=== PATIENT | male | born 1985 | race Caucasian/White ===

== ENCOUNTER 2016-11-06 20:08 | Emergency (ER) | payer OTHER ==
--- NOTE | 2016-11-06 21:26 | DIAGNOSTIC IMAGING REPORT ---
PROCEDURE: XR HIP 2VW W W/O AP PELVIS-LT INDICATION: Left hip pain. Prior acetabular fracture. TECHNIQUE: AP view of the pelvis and hips with lateral view of the left hip. COMPARISON: None. FINDINGS: LEFT HIP: Left hip is partially obscured by acetabular metal hardware. Osseous structures and joint spaces are normal. PELVIS: Status post open reduction internal fixation of left acetabular fracture (side plate and multiple screws). In addition, there is a solitary screw through the left iliac wing. There are osseous pelvis is otherwise normal. IMPRESSION: 1. Status post open reduction internal fixation of left acetabular and iliac wing fractures (metal hardware). 2. Otherwise negative pelvis and left hip.
--- NOTE | 2016-11-06 22:01 | ED CLINICAL REPORT ---
Clinical Report - Physicians/Mid Levels [facility] [address] [place] [address] 11/06/2016 20:08 Patient: JOSE FELICIANO Time Seen: 2014; initial patient contact, initial documentation, patient care assumed. Arrived- By private vehicle. Historian- patient. HISTORY OF PRESENT ILLNESS Chief Complaint: LOWER EXTREMITY PAIN. Severity is described as being severe. The quality is noted to be "pain". It is described as radiating to the left buttocks and left groin. This started today and is still present. It was abrupt in onset and has been constant. Symptoms located in the area of the left hip. The patient has not had redness. No swelling, bladder dysfunction, bowel dysfunction, sensory loss or motor loss. He has had difficulty walking. It has been associated with pain in the left leg. He has not had difficult ambulation associated with numbness or weakness. No history of incontinence, dizziness, recent trauma or coordination problems. The patient has not had a shuffling gait. Patient denies an injury. Similar symptoms previously: Chronically, milder. Recent medical care: Not recently seen/assessed. REVIEW OF SYSTEMS No chest pain, difficulty breathing, fever, neck pain or back pain. No abdominal pain or difficulty with urination. All systems otherwise negative, except as recorded above. PAST HISTORY See nurses notes. ( PROBLEMS: Gastritis. Contusion. Back Pain. Myofascial Strain. Hypertension. Chronic Pain. On pain contract with [facility]. --20:16 Elke Mahmood R.N. ADDITIONAL SURGERIES: Fx Pelvis, Left knee and Left Hip (2005). --20:16 Elke Mahmood, R.N.). SOCIAL HISTORY Heavy tobacco smoker. History of heavy drug use: marijuana. Recently used drugs today. No alcohol use. No recent travel. Is a local resident. FAMILY HISTORY Negative. ADDITIONAL NOTES The nursing notes have been reviewed with agreement regarding the chief complaint, HPI, ROS, PMH and patient medications and allergies. PHYSICAL EXAM Vital Signs: 11/06/2016 20:14 BP: 144/88. HR: 73. RR: 20. O2 saturation: 100%. Temp: 97.9 F. Pain level now: 02/11. Have been reviewed as normal and appear to be correct. Appearance: Alert. Oriented X3. No acute distress. Eyes: Pupils equal, round and reactive to light. Eyes normal inspection. Neck: Normal inspection. Neck supple. CVS: Normal heart rate and rhythm. Heart sounds normal. Respiratory: No respiratory distress. Breath sounds normal. Abdomen: Soft and nontender. No organomegaly. Back: Normal inspection. No tenderness. ROM normal. Skin: Skin intact. Skin warm and dry. Normal skin color. Normal skin turgor. Extremities: Left hip: moderate tenderness located in the lateral aspect of the hip. Neurovascular intact distally. No erythema, swelling, laceration, abrasion or ecchymosis. No puncture wound, foreign body or deformity. No limitation in ROM. The left leg is not shortened, externally rotated, internally rotated, flexed or adducted. The left leg is not abducted. Lower extremities exhibit normal ROM. No lower extremity edema. Extremities otherwise negative. Gait: Normal gait. Neuro: Oriented X 3. No motor deficit. No sensory deficit. LABS, X-RAYS, AND EKG X-Rays: Left hip negative. Lt Hip X-ray: (IMPRESSION: 1. Status post open reduction internal fixation of left acetabular and iliac wing fractures (metal hardware). 2. Otherwise negative pelvis and left hip. Electronically Final signed by:Wally Us MD 11/06/2016 9:21:59 PM). The X-rays were interpreted by the radiologist and contemporaneously by me. Interpretation time: 21:46. PROGRESS AND PROCEDURES Patient counseled in person regarding the patient's stable condition, test results and diagnosis. 21:46. Differential Diagnosis: I considered stress fracture, bone spur, aseptic necrosis, primary tumor of bone, degenerative joint disease, septic etiology, ligament tear, myositis, fasciitis, tendonitis and bursitis as a possible cause of lower extremity pain in this patient. This is a partial list of diagnoses considered. Above considerations are based on history, physical exam, reassessment and X-Ray data. Differential diagnosis was discussed with patient. Disposition: Discharged home in good and improved condition (22:00). Condition: good and stable. CLINICAL IMPRESSION Chronic left hip pain. INSTRUCTIONS Warnings: GENERAL WARNINGS: Return or contact your physician immediately if your condition worsens or changes unexpectedly, if not improving as expected, or if other problems arise. Specifically return if problem worsens. Prescription Medications: Ultram 50 mg tablets: take 1-2 orally every 6 hours as needed for pain. Dispense twenty (20). No refills. Substitution is permissible. Follow-up: Follow up with your doctor in about five days as needed. Call for an appointment. Summary of care provided to patient. Understanding of the discharge instructions verbalized by patient. (Electronically signed by Christiane Christiansen A.R.N.P. 11/06/2016 23:01)
--- NOTE | 2016-11-06 22:01 | ED NURSING NOTES ---
Clinical Report - Nurses [facility] [place] [address] [place] [address] 11/06/2016 20:08 Patient: JOSE FELICIANO TRIAGE Triage time 20:Nov 06 2016. Acuity: LEVEL 4. Chief Complaint: LEFT LOWER EXTREMITY PAIN. 20:17 11/06/16. SEPSIS SCREEN: Sepsis Screen. Negative (no infection suspected/documented). THEO COMA SCORE: Theo Coma Scale: 15- eyes open spontaneously (4); best verbal response- oriented x 4 (5); best motor response- obeys commands (6). --20:17 Elke Mahmood R.N. 20:14 11/06/16. BP: 144/88 (regular adult cuff) taken on the left arm. HR: 73. RR: 20. O2 saturation: 100% on room air. Temp: 97.9 F (oral). Pain level now: 02/11. --20:17 Elke Mahmood R.N. Weight: 99.7 kg stated. Height/Length: 76 inches Per Patient. BMI: 26.8. --20:17 Elke Mahmood R.N. Medications None. --20:15 Elke Mahmood R.N. Allergies morphine.(vomiting) --20:16 Elke Mahmood R.N. History Historian: patient. Accompanied by friend. No injury occurred. This occurred today. It is described as radiating to the left buttocks and groin. He has had trouble walking. Treatment SENIOR RESEARCH EXECUTIVE: Ice. SOCIAL HX: Current every day heavy tobacco smoker- less than 1 pack per day. History of heavy drug use: marijuana. Recently used drugs today. No alcohol use. No infectious disease exposure. ABUSE ASSESSMENT: No report of abuse. --20:17 Elke Mahmood R.N. PROBLEMS: Gastritis. Contusion. Back Pain. Myofascial Strain. Hypertension. Chronic Pain. On pain contract with [facility]. --20:16 Elke Mahmood R.N. ADDITIONAL SURGERIES: Fx Pelvis, Left knee and Left Hip (2005). --20:16 Elke Mahmood R.N. Interventions ID band on patient. To treatment room. --20:17 Elke Mahmood R.N. PHYSICAL ASSESSMENT 20:18 11/06/16. Ambulatory to room. GENERAL / NEURO / PSYCH: Oriented X 4. Alert. Appears in no acute distress. EXTREMITIES: Limited ROM present in the left hip. Extremity pulses are within normal limits. Neuro-vascular status intact to the extremity. No lower extremity edema. Left hip: tenderness. ( trouble walking). SKIN: Skin intact. Skin is warm and dry. --20:18 Elke Mahmood R.N. NURSING PROGRESS NOTES 20:18 11/06/16. The plan of care for this patient has been created. Patient gowned. Reassurance given. Two patient identifiers checked. Call light placed in reach. Side rails up x 1. Bed placed in lowest position. Brakes of bed on. Patient ready for evaluation- chart flagged and ED physician notified. --20:18 Elke Mahmood R.N. ( Offered patient blanket, he declined, offered Ice he declined). --20:19 Elke Mahmood R.N. 20:37 11/06/2016 Toradol (Ketorolac Tromethamine) IM 60 mg given. Given in the right anterior lateral thigh. Allergies verified and confirmed 5 rights. --20:37 Elke Mahmood R.N. Patient returned from radiology by stretcher with tech. --20:56 Yumiko Gudino R.N. <<STRICKEN ENTRY-- Patient returned from radiology by stretcher with tech. (20:50 Nov 06 2016). --20:59 Elke Mahmood R.N. --END STRIKE>> already charted --21:00 Elke Mahmood R.N. 21:02 11/06/16. ( Patient still in pain, asked him to give pain med more time to work, warm blanket applied to left hip for comfort measures). --21:02 Elke Mahmood R.N. ( pt presses call light, asking for water and "something else for pain", states whatever he was given did not work. ED Provider notified.). --21:19 Yumiko Gudino R.N. 21:23 11/06/2016 Hydrocodone-APAP (Hydrocodone-Acetaminophen) PO 5/325 mg Tablets 1 tab given. Allergies verified, confirmed 5 rights and sedative warning given to the patient. --21:24 Yumiko Gudino R.N. ( ice water provided to pt, per pt request and verbal ok from ED provider). --21:24 Yumiko Gudino R.N. DISPOSITION / DISCHARGE 22:20 11/06/16. Departure time: 22:Nov 06 2016. Condition at departure: improved. No learning barriers present. Discharge instructions provided and reviewed with the patient. Reviewed medication(s) side effects, precautions, dosing and course information. Patient verbalized understanding. Written instructions provided in [place]. The patient was discharged by the physician registered sales assistant. He was discharged home and accompanied by dental office coordinator. He left the Emergency Department ambulatory and via private vehicle. [place] Turner driving. --22:21 Elke Mahmood R.N. 22:19 11/06/16. BP: 127/79 (regular adult cuff) taken on the left arm. HR: 55. RR: 16. O2 saturation: 99% on room air. Temp: 98.1 F (oral). Pain level now: 11/11. --22:21 Elke Mahmood R.N. Locked/Released at 11/07/2016 1:02 by Elke Mahmood R.N.
--- NOTE | 2016-11-06 22:01 | ED NURSING NOTES ---
Clinical Report - Nurses [facility] [place] [address] 11/06/2016 20:08 Patient: JOSE FELICIANO TRIAGE Triage time 20:Nov 06 2016. Acuity: LEVEL 4. Chief Complaint: LEFT LOWER EXTREMITY PAIN. 20:17 11/06/16. SEPSIS SCREEN: Sepsis Screen. Negative (no infection suspected/documented). THEO COMA SCORE: Theo Coma Scale: 15- eyes open spontaneously (4); best verbal response- oriented x 4 (5); best motor response- obeys commands (6). --20:17 Elke Mahmood R.N. 20:14 11/06/16. BP: 144/88 (regular adult cuff) taken on the left arm. HR: 73. RR: 20. O2 saturation: 100% on room air. Temp: 97.9 F (oral). Pain level now: 02/11. --20:17 Elke Mahmood R.N. Weight: 99.7 kg stated. Height/Length: 76 inches Per Patient. BMI: 26.8. --20:17 Elke Mahmood R.N. Medications None. --20:15 Elke Mahmood R.N. Allergies morphine.(vomiting) --20:16 Elke Mahmood R.N. History Historian: patient. Accompanied by friend. No injury occurred. This occurred today. It is described as radiating to the left buttocks and groin. He has had trouble walking. Treatment SKID ROAD MAN: Ice. SOCIAL HX: Current every day heavy tobacco smoker- less than 1 pack per day. History of heavy drug use: marijuana. Recently used drugs today. No alcohol use. No infectious disease exposure. ABUSE ASSESSMENT: No report of abuse. --20:17 Elke Mahmood R.N. PROBLEMS: Gastritis. Contusion. Back Pain. Myofascial Strain. Hypertension. Chronic Pain. On pain contract with [facility]. --20:16 Elke Mahmood R.N. ADDITIONAL SURGERIES: Fx Pelvis, Left knee and Left Hip (2005). --20:16 Elke Mahmood R.N. Interventions ID band on patient. To treatment room. --20:17 Elke Mahmood R.N. PHYSICAL ASSESSMENT 20:18 11/06/16. Ambulatory to room. GENERAL / NEURO / PSYCH: Oriented X 4. Alert. Appears in no acute distress. EXTREMITIES: Limited ROM present in the left hip. Extremity pulses are within normal limits. Neuro-vascular status intact to the extremity. No lower extremity edema. Left hip: tenderness. ( trouble walking). SKIN: Skin intact. Skin is warm and dry. --20:18 Elke Mahmood R.N. NURSING PROGRESS NOTES 20:18 11/06/16. The plan of care for this patient has been created. Patient gowned. Reassurance given. Two patient identifiers checked. Call light placed in reach. Side rails up x 1. Bed placed in lowest position. Brakes of bed on. Patient ready for evaluation- chart flagged and ED physician notified. --20:18 Ekle Mahmood R.N. ( Offered patient blanket, he declined, offered Ice he declined). --20:19 Elke Mahmood R.N. 20:37 11/06/2016 Toradol (Ketorolac Tromethamine) IM 60 mg given. Given in the right anterior lateral thigh. Allergies verified and confirmed 5 rights. --20:37 Elke Mahmood R.N. Patient returned from radiology by stretcher with tech. --20:56 Yumiko Gudino R.N. <<STRICKEN ENTRY-- Patient returned from radiology by stretcher with tech. (20:50 Nov 06 2016). --20:59 Elke Mahmood R.N. --END STRIKE>> already charted --21:00 Elke Mahmood R.N. 21:02 11/06/16. ( Patient still in pain, asked him to give pain med more time to work, warm blanket applied to left hip for comfort measures). --21:02 Elke Mahmood R.N. ( pt presses call light, asking for water and "something else for pain", states whatever he was given did not work. ED Provider notified.). --21:19 Yumiko Gudino R.N. 21:23 11/06/2016 Hydrocodone-APAP (Hydrocodone-Acetaminophen) PO 5/325 mg Tablets 1 tab given. Allergies verified, confirmed 5 rights and sedative warning given to the patient. --21:24 Yumiko Gudino R.N. ( ice water provided to pt, per pt request and verbal ok from ED provider). --21:24 Yumiko Gudino R.N. DISPOSITION / DISCHARGE 22:20 11/06/16. Departure time: 22:Nov 06 2016. Condition at departure: improved. No learning barriers present. Discharge instructions provided and reviewed with the patient. Reviewed medication(s) side effects, precautions, dosing and course information. Patient verbalized understanding. Written instructions provided in [place]. The patient was discharged by the physician life science research assistant. He was discharged home and accompanied by tamale maker. He left the Emergency Department ambulatory and via private vehicle. Business Intelligence Developer driving. --22:21 Elke Mahmood R.N. 22:19 11/06/16. BP: 127/79 (regular adult cuff) taken on the left arm. HR: 55. RR: 16. O2 saturation: 99% on room air. Temp: 98.1 F (oral). Pain level now: 11/11. --22:21 Elke Mahmood R.N. Locked/Released at 11/07/2016 1:02 by Elke Mahmood R.N.
--- NOTE | 2016-11-06 22:01 | ED ORDER SUMMARY ---
..... Patient: JOSE FELICIANO OrderSheet [facility] VisitID: [id number] [address] [place] [address] 30y, M Registration Date/Time: 11/06/2016 ORDER SHEET Weight: 99.7 kg (stated) Allergies: morphine GENERAL ORDERS: Hip 2V Left w AP Pelvis Urgent (20:25 11/06/2016 HBivens A.R.N.P.) (Ack 20:35 RKaruga) (20:56 RKaruga) MEDICATION ORDERS: Toradol IM 60 mg (NOW) (20:24 11/06/2016 HBivens A.R.N.P.) (20:37 JSanders R.N.) Hydrocodone-APAP PO 5/325 mg (NOW, HIGH ALERT MEDICATION) (21:20 11/06/2016 HBivens A.R.N.P.) (Ack 21:20 RCollier R.N.) (21:24 RCollier R.N.) IV FLUIDS: ORDER SHEET NOTES: [Electronically signed by Christiane [email or web address] (23:01 11/06/2016)] [Electronically signed by Elke Mahmood R.N. (01:02 11/07/2016)] [Electronically locked/signed by Elke Mahmood R.N. (01:02 11/07/2016)]
--- NOTE | 2016-11-06 22:01 | ED ORDER SUMMARY ---
..... Patient: JOSE FELICIANO OrderSheet [facility] VisitID: [id number] [address] [place] [address] 30y, M Registration Date/Time: 11/06/2016 ORDER SHEET Weight: 99.7 kg (stated) Allergies: morphine GENERAL ORDERS: Hip 2V Left w AP Pelvis Urgent (20:25 11/06/2016 HBivens A.R.N.P.) (Ack 20:35 RKaruga) (20:56 RKaruga) MEDICATION ORDERS: Toradol IM 60 mg (NOW) (20:24 11/06/2016 HBivens A.R.N.P.) (20:37 JSanders R.N.) Hydrocodone-APAP PO 5/325 mg (NOW, HIGH ALERT MEDICATION) (21:20 11/06/2016 HBivens A.R.N.P.) (Ack 21:20 RCollier R.N.) (21:24 RCollier R.N.) IV FLUIDS: ORDER SHEET NOTES: [Electronically signed by Christiane ChristiansenRDaytonN.PDayton (23:01 11/06/2016)] [Electronically signed by Elke Mahmood R.N. (01:02 11/07/2016)] [Electronically locked/signed by Elke Mahmood R.N. (01:02 11/07/2016)]
--- NOTE | 2016-11-07 01:02 | ED DISCHARGE INSTRUCTIONS ---
Patient: JOSE FELICIANO General Instructions [facility] VisitID: [id number] [place] [address] 30y, M Registration Date/Time: 11/06/2016 Chronic left hip pain. INSTRUCTIONS Warnings: GENERAL WARNINGS: Return or contact your physician immediately if your condition worsens or changes unexpectedly, if not improving as expected, or if other problems arise. Specifically return if problem worsens. Prescription Medications: Ultram 50 mg tablets: take 1-2 orally every 6 hours as needed for pain. Dispense twenty (20). No refills. Substitution is permissible. Follow-up: Follow up with your doctor in about five days as needed. Call for an appointment. Summary of care provided to patient. Understanding of the discharge instructions verbalized by patient. ADDITIONAL INFORMATION Myofascial Pain Syndrome: Fibrositis Your pain is caused by a state of chronic muscle tension. This condition is called by various names: myofascial pain, fibrositis and trigger point pain. This can also be due to mechanical stress (such as working at a computer terminal for long periods; or work that requires repetitive motions of the arms or hands) or emotional stress (such as problems on the job or in your personal life). Sometimes there is no obvious cause. The pain can occur in the area of the muscle spasm or at a site distant to it. For example, spasm of a neck muscle can cause headache. Spasm of the muscle near the shoulder blade can cause pain shooting down the arm. Home Care: Try to identify the factors that may be causing your problem and change them: If you feel thatemotional stressis a cause of your pain, learn methods to deal more effectively with the stress in your life. These may include regular exercise, muscle relaxation techniques, meditation or simply taking time out for yourself. Consult your doctor or go to a local bookstore and review the many books and tapes available on the subject of stress reduction. If you feel that physical stress is a cause for your pain, try to modify any poor work habits. You may use acetaminophen (Tylenol) or ibuprofen (Motrin, Advil) to control pain, unless another medicine was prescribed. [NOTE: If you have chronic liver or kidney disease or ever had a stomach ulcer or GI bleeding, talk with your doctor before using these medicines.] The use of heat to the muscle (hot compress or heating pad) will be helpful to reduce muscle spasm. Some persons get relief with ice packs. Apply an ice pack (crushed or cubed ice in a plastic bag, wrapped in a towel) for 20 minutes at a time as needed. Use the method that feels best to you. Massaging the trigger point and stretching out the muscleare an important parts of prevention and treatment. Trigger point massage can be done by first applying heat to the area to warm and prepare the muscle. Have someone apply steady thumb pressure directly on the knot in the muscle (the most tender point) for 30 seconds. Release the pressure, then massage the surrounding muscle. Repeat the process, applying more pressure to the trigger point each time. Do this up to the limit of pain. With each treatment, the trigger point should become less tender and the pain should decrease. You can apply local pressure to trigger points in the back by lying on the floor with a tennis ball under the trigger point. Follow Up with your doctor as advised or if not improving within the next week. It may be necessary for you to receive physical therapy if you do not respond to home treatment alone. Get Prompt Medical Attention if any of the following occur: If your trigger point is in the chest muscles, observe for pain that becomes more severe, lasts longer, or spreads into your shoulder/arm, neck or back; you develop trouble breathing, sweating, nausea or vomiting in association with chest pain If you develop weakness or numbness in an extremity If your pain worsens, regardless of its location Tramadol Hydrochloride Oral tablet What is this medicine? TRAMADOL (TRA ma dole) is a pain reliever. It is used to treat moderate to severe pain in adults. How should I use this medicine? Take this medicine by mouth with a full glass of water. Follow the directions on the prescription label. If the medicine upsets your stomach, take it with food or milk. Do not take more medicine than you are told to take. Talk to your energy operations vice president regarding the use of this medicine in children. Special care may be needed. What side effects may I notice from receiving this medicine? Side effects that you should report to your doctor or health patient care technician instructor as soon as possible: allergic reactions like skin rash, itching or hives, swelling of the face, lips, or tongue breathing difficulties, wheezing confusion itching light headedness or fainting spells redness, blistering, peeling or loosening of the skin, including inside the mouth seizures Side effects that usually do not require medical attention (report to your doctor or health patient care technician instructor if they continue or are bothersome): constipation dizziness drowsiness headache nausea, vomiting What may interact with this medicine? Do not take this medicine with any of the following medications: MAOIs like Carbex, Eldepryl, Marplan, Nardil, and Parnate This medicine may also interact with the following medications: alcohol or medicines that contain alcohol antihistamines benzodiazepines bupropion carbamazepine or oxcarbazepine clozapine cyclobenzaprine digoxin furazolidone linezolid medicines for depression, anxiety, or psychotic disturbances medicines for migraine headache like almotriptan, eletriptan, frovatriptan, naratriptan, rizatriptan, sumatriptan, zolmitriptan medicines for pain like pentazocine, buprenorphine, butorphanol, meperidine, nalbuphine, and propoxyphene medicines for sleep muscle relaxants naltrexone phenobarbital phenothiazines like perphenazine, thioridazine, chlorpromazine, mesoridazine, fluphenazine, prochlorperazine, promazine, and trifluoperazine procarbazine warfarin What if I miss a dose? If you miss a dose, take it as soon as you can. If it is almost time for your next dose, take only that dose. Do not take double or extra doses. Where should I keep my medicine? Keep out of the reach of children. Store at room temperature between 15 and 30 degrees C (59 and 86 degrees F). Keep container tightly closed. Throw away any unused medicine after the expiration date. What should I tell my health care provider before I take this medicine? They need to know if you have any of these conditions: brain tumor depression drug abuse or addiction head injury if you frequently drink alcohol containing drinks kidney disease or trouble passing urine liver disease lung disease, asthma, or breathing problems seizures or epilepsy suicidal thoughts, plans, or attempt; a previous suicide attempt by you or a family member an unusual or allergic reaction to tramadol, codeine, other medicines, foods, dyes, or preservatives or trying to get breast-feeding What should I watch for while using this medicine? Tell your doctor or health patient care technician instructor if your pain does not go away, if it gets worse, or if you have new or a different type of pain. You may develop tolerance to the medicine. Tolerance means that you will need a higher dose of the medicine for pain relief. Tolerance is normal and is expected if you take this medicine for a long time. Do not suddenly stop taking your medicine because you may develop a severe reaction. Your body becomes used to the medicine. This does NOT mean you are addicted. Addiction is a behavior related to getting and using a drug for a non-medical reason. If you have pain, you have a medical reason to take pain medicine. Your doctor will tell you how much medicine to take. If your doctor wants you to stop the medicine, the dose will be slowly lowered over time to avoid any side effects. You may get drowsy or dizzy. Do not drive, use machinery, or do anything that needs mental alertness until you know how this medicine affects you. Do not stand or sit up quickly, especially if you are an older patient. This reduces the risk of dizzy or fainting spells. Alcohol can increase or decrease the effects of this medicine. Avoid alcoholic drinks. You may have constipation. Try to have a bowel movement at least every 2 to 3 days. If you do not have a bowel movement for 3 days, call your doctor or health patient care technician instructor. Your mouth may get dry. Chewing sugarless gum or sucking hard candy, and drinking plenty of water may help. Contact your doctor if the problem does not go away or is severe. You have been given the following additional information: Myofascial Pain Syndrome Tramadol Hydrochloride Oral tablet (Electronically signed by Christiane Christiansen A.R.N.P. 11/06/2016 23:01)
--- NOTE | 2016-11-07 01:02 | ED MED RECONCILIATION SUMMARY ---
Patient: JOSE FELICIANO Medication Reconciliation Report [facility] VisitID: [id number] [address] [place] [address] 30y, M Registration Date/Time: 11/06/2016 Weight: 99.7 kg Height/Length: 76 in. BMI: 26.8 ALLERGIES: morphine The patient's Home Medications are listed below: NONE. The source(s) of the original Home Medication information: Not obtained. The following Medications were given to the patient in the Emergency Department: Toradol [IM] IM 60 mg, administered: 11/06/2016 8:37:00 PM Hydrocodone-APAP [PO] PO 1 tab, administered: 11/06/2016 9:23:00 PM The following Medications were prescribed to the patient: Ultram 50 mg tablets: take 1-2 orally every 6 hours as needed for pain. Dispense twenty (20). No refills. Substitution is permissible. -- Christiane Christiansen A.R.N.P.
--- NOTE | 2016-11-07 01:02 | ED MAR SUMMARY ---
..... Medication Administration Record [facility] [address] [place] [address] Patient: JOSE FELICIANO Visit ID: [id number] 30y, M Weight: 99.7 kg Height/Length: 76 in BMI: 26.8 ALLERGIES: morphine Given 20:37 11/06/2016 Elke Mahmood RLoi Medication Administered: TORADOL [IM] (KETOROLAC TROMETHAMINE), Dose: 60 mg IM. Medication Ordered: Toradol IM 60 mg (NOW). Given 21:23 11/06/2016 Yumiko Gudino, RDaytonNDayton Medication Administered: HYDROCODONE-APAP [PO] (HYDROCODONE-ACETAMINOPHEN), Dose: 1 tab 5/325 mg Tablets PO. Medication Ordered: Hydrocodone-APAP PO 5/325 mg (NOW, HIGH ALERT MEDICATION).
--- NOTE | 2016-11-07 01:02 | ED MED RECONCILIATION SUMMARY ---
Patient: JOSE FELICIANO Medication Reconciliation Report [facility] VisitID: [id number] [address] [place] [address] 30y, M Registration Date/Time: 11/06/2016 Weight: 99.7 kg Height/Length: 76 in. BMI: 26.8 ALLERGIES: morphine The patient's Home Medications are listed below: NONE. The source(s) of the original Home Medication information: Not obtained. The following Medications were given to the patient in the Emergency Department: Toradol [IM] IM 60 mg, administered: 11/06/2016 8:37:00 PM Hydrocodone-APAP [PO] PO 1 tab, administered: 11/06/2016 9:23:00 PM The following Medications were prescribed to the patient: Ultram 50 mg tablets: take 1-2 orally every 6 hours as needed for pain. Dispense twenty (20). No refills. Substitution is permissible. -- Christiane Christiansen A.R.N.P.
--- NOTE | 2016-11-07 01:02 | ED MAR SUMMARY ---
..... Medication Administration Record [facility] [address] [place] [address] Patient: JOSE FELICIANO Visit ID: [id number] 30y, M Weight: 99.7 kg Height/Length: 76 in BMI: 26.8 ALLERGIES: morphine Given 20:37 11/06/2016 Elke Mahmood RLoi Medication Administered: TORADOL [IM] (KETOROLAC TROMETHAMINE), Dose: 60 mg IM. Medication Ordered: Toradol IM 60 mg (NOW). Given 21:23 11/06/2016 Yumiko Gudino, RDaytonNDayton Medication Administered: HYDROCODONE-APAP [PO] (HYDROCODONE-ACETAMINOPHEN), Dose: 1 tab 5/325 mg Tablets PO. Medication Ordered: Hydrocodone-APAP PO 5/325 mg (NOW, HIGH ALERT MEDICATION).
== END 2016-11-06 22:20 | disposition home or self-care (01) ==
LOC: ED SRH 20:08
DX: M25.552 Pain in left hip (principal); G89.29 Other chronic pain; F17.210 Nicotine dependence, cigarettes, uncomplicated; F12.10 Cannabis abuse, uncomplicated; I10 Essential (primary) hypertension; Z88.5 Allergy status to narcotic agent